=== PATIENT | female | born 1985 | race Hispanic/Latino ===

== ENCOUNTER 2018-10-28 08:24 | Emergency (ER) | payer OTHER ==
[2018-10-28 09:01] VITALS: BP 116/69
[2018-10-28] MEDS ORDERED: ZOFRAN ODT PO ONE (10:23)
--- NOTE | 2018-10-28 10:32 | Emergency Department Report ---
HPI - General Chief Complaint: Abdominal Pain Time Seen by Provider: 10/28/18 10:15 - HPI HPI: 33-year-old female presents to the emergency department with a complaint of some mid to lower abdominal pain, nausea without vomiting, and diarrhea, that has been going on for the past few weeks. The patient was seen at [facility] in August for the same symptoms and had a CT scan. She says that it showed that the mesh from her previous abdominal/ventral hernia repair "shifted." She has not seen any general surgeon or anyone regarding any type of her vision or repair. She says that the pain and nausea are keeping her from being able to eat and she is concerned that she will lose more weight. She also has a surgical history of tubal ligation and previous cholecystectomy. No primary care physician. No recent travel or sick contacts at home. She denies any fever, vaginal bleeding or discharge, dysuria. ED Past Medical Hx - Past Medical History Previous Medical History?: Yes Additional medical history: hernia - Surgical History Past Surgical History?: Yes Hx Cholecystectomy: Yes Additional Surgical History: hernia repair. tubal ligation ED Review of Systems ROS: Stated complaint: CHRONIC PAIN/HERNIA Other details as noted in HPI Comment: All other systems reviewed and negative Constitutional: denies: chills, fever Respiratory: denies: shortness of breath Cardiovascular: denies: chest pain Gastrointestinal: abdominal pain, nausea, diarrhea. denies: vomiting Genitourinary: denies: dysuria, discharge Musculoskeletal: denies: back pain, arthralgia Neurological: denies: numbness, paresthesias Physical Exam - Physical Exam Vital Signs: Vital Signs 10/28/18 09:01 Temperature 98.2 F Pulse Rate 63 Respiratory 18 Rate Blood Pressure 116/69 [Right] O2 Sat by Pulse 99 Oximetry Physical Exam: GENERAL: The patient is well-developed well-nourished. HENT: Normocephalic. Atraumatic. Patient has moist mucous membranes. EYES: Extraocular motions are intact. NECK: Supple. Trachea is midline. CHEST/LUNGS: Clear to auscultation. There is no respiratory distress noted. HEART/CARDIOVASCULAR: Regular. There is no tachycardia. There is no murmur. ABDOMEN: Abdomen is soft. Lower abdominal tenderness to palpation. No guarding. Patient has normal bowel sounds. There is no abdominal distention. SKIN: Skin is warm and dry. NEURO: The patient is awake, alert, and oriented. The patient is cooperative. Normal speech. MUSCULOSKELETAL: There is no tenderness or deformity. There is no limitation range of motion. There is no evidence of acute injury. ED Course Vital Signs 10/28/18 09:01 Temperature 98.2 F Pulse Rate 63 Respiratory 18 Rate Blood Pressure 116/69 [Right] O2 Sat by Pulse 99 Oximetry ED Medical Decision Making - Lab Data Result diagrams: 10/28/18 10:35 10/28/18 10:35 - Medical Decision Making This patient presented with a complaint of some mid to lower abdominal pain and some CT imaging findings showing that her mesh hernia repair has moved. On examination she has some mild lower abdominal tenderness to palpation of the abdomen is soft, nondistended and nontoxic in appearance. Labs were unremarkable including CBC and metabolic panel. I went back to speak to the patient and she had already eloped from the emergency department. - Differential Diagnosis constipation, UTI, bowel obstruction, hernia Critical Care Time: No Critical care attestation.: If time is entered above; I have spent that time in minutes in the direct care of this critically ill patient, excluding procedure time. ED Disposition Clinical Impression: Abdominal pain Qualifiers: Abdominal location: unspecified location Qualified Code(s): R10.9 - Unspecified abdominal pain Disposition: ELOPED Is pt being admited?: No Condition: Stable Instructions: Abdominal Pain (ED) Referrals: PRIMARY CARE, [Primary Care Provider] - 3-5 Days Time of Disposition: 15:38
[2018-10-28] MEDS ORDERED: TYLENOL PO ONE (10:42)
[2018-10-28 10:56] LABS: Basophils # (Auto) 0.1 K/mm3 (0.0-0.1); Basophils % (Auto) 1.5 % (0.0-1.8); Eosinophils # (Auto) 0.1 K/mm3 (0.0-0.4); Eosinophils % (Auto) 1.8 % (0.0-4.3); Hematocrit 38.7 % (30.3-42.9); Hemoglobin 13.1 gm/dl (10.1-14.3); Lymphocytes # (Auto) 1.1 K/mm3 (1.2-5.4); Lymphocytes % (Auto) 23.2 % (13.4-35.0); Mean Corpuscular HGB Conc 34 % (30-34); Mean Corpuscular Volume 94 fl (79-97); Monocytes # (Auto) 0.3 K/mm3 (0.0-0.8); Monocytes % (Auto) 6.2 % (0.0-7.3); Platelet Count 171 K/mm3 (140-440); Red Blood Count 4.14 M/mm3 (3.65-5.03); Red Cell Distribution Width 13.4 % (13.2-15.2)
[2018-10-28 11:18] LABS: Alanine Aminotransferase 6 units/L (7-56); Albumin 4.2 g/dL (3.9-5); BUN/Creatinine Ratio 24; Blood Urea Nitrogen 17 mg/dL (7-17); Calcium 8.8 mg/dL (8.4-10.2); Hemolysis Index 10
== END 2018-10-28 11:22 | disposition left against medical advice (07) ==
LOC: ED 08:24
DX: R10.30 Lower abdominal pain, unspecified (principal); R11.2 Nausea with vomiting, unspecified; R19.7 Diarrhea, unspecified; Z90.49 Acquired absence of other specified parts of digestive tract; Z98.890 Other specified postprocedural states; Z98.51 Tubal ligation status
CPT/HCPCS: 36415; 80053; 84703; 85025; Q0162

== ENCOUNTER 2021-10-20 20:32 | Emergency (ER) | payer OTHER ==
[2021-10-20 20:59] VITALS: BP 134/69
--- NOTE | 2021-10-20 21:53 | XRay Report ---
RIGHT FOOT 3 VIEW(S) Calcaneus 2 views INDICATION / CLINICAL INFORMATION: INJURY COMPARISON: None available. FINDINGS: BONES / JOINT(S): Acute comminuted calcaneal fracture centered at the mid calcaneus with involvement of the posterior subtalar joint. No significant arthritis. SOFT TISSUES: Soft tissue swelling about the foot. ADDITIONAL FINDINGS: None. IMPRESSION: 1. Acute comminuted calcaneal fracture with involvement of the posterior subtalar joint. Signer Name: Caleb Miller MD Signed: 10/20/2021 9:49 PM Workstation Name: [email or web address]
[2021-10-21] MEDS ORDERED: NAPROXEN 500 MG TAB PO ONE (00:02)
[2021-10-21] MEDS ORDERED: MORPHINE 4 MG/1 ML INJ IM ONE (02:23)
[2021-10-21] MEDS ORDERED: ONDANSETRON 4 MG ODT TAB PO ONE (02:23)
[2021-10-21] MEDS ORDERED: ONDANSETRON 4 MG/2 ML INJ IV ONE (02:34)
[2021-10-21] MEDS: MORPHINE 4 MG/1 ML INJ IV ONE ×2 (02:39→04:28)
--- NOTE | 2021-10-21 03:12 | Emergency Department Report ---
ED Lower Extremity HPI - General Chief Complaint: Extremity Injury, Lower Stated Complaint: POSS BROKEN RIGHT FOOT Time Seen by Provider: 10/21/21 02:22 Source: patient Mode of arrival: Ambulatory Limitations: No Limitations - History of Present Illness Initial Comments: Patient is a 36-year-old female who presents stating that she tripped over her cat and fell down several stairs. She complains of pain in her right plantar heel as well as low back. She has been unable to weight-bear. No previous injuries to that foot. Denies head injury or neck pain. MD Complaint: ankle injury Injury: Foot: Right Type of Injury: other (She is very vague about the mechanism of injury but states she tripped over a cat.) Place: home Severity: severe Severity scale (0 -10): 9 Improves With: nothing Worsens With: weight bearing Associated Symptoms: swelling, unable to bear weight Treatments Prior to Arrival: other (None) - Related Data Previous Rx's Medication Instructions Recorded Last Taken Type traMADoL [Ultram] 50 mg PO Q4HR PRN #15 tablet 10/21/21 Unknown Rx Allergies Allergy/AdvReac Type Severity Reaction Status Date / Time No Known Allergies Allergy Unverified 10/28/18 08:28 ED Review of Systems ROS: Stated complaint: POSS BROKEN RIGHT FOOT Other details as noted in HPI Comment: All other systems reviewed and negative Constitutional: denies: chills, fever Eyes: denies: vision change ENT: denies: epistaxis Respiratory: no symptoms reported. denies: shortness of breath Cardiovascular: denies: chest pain, palpitations, edema Gastrointestinal: denies: abdominal pain, nausea, vomiting, diarrhea Genitourinary: denies: hematuria Musculoskeletal: as per HPI, back pain, joint swelling, other (Right heel as above) Skin: other (Ecchymosis and swelling foot) Neurological: denies: headache, weakness, numbness, paresthesias, confusion Psychiatric: denies: anxiety, depression Hematological/Lymphatic: denies: easy bleeding, easy bruising ED Past Medical Hx - Past Medical History Previous Medical History?: No Additional medical history: hernia - Surgical History Past Surgical History?: No Hx Cholecystectomy: Yes Additional Surgical History: hernia repair. tubal ligation - Family History Family history: no significant - Social History Smoking Status: Current Every Day Smoker Substance Use Type: None - Medications Home Medications: Home Medications Medication Instructions Recorded Confirmed Last Taken Type traMADoL [Ultram] 50 mg PO Q4HR PRN #15 tablet 10/21/21 Unknown Rx ED Physical Exam - General Limitations: No Limitations General appearance: alert, in distress (In pain) - Head Head exam: Present: atraumatic, normocephalic - Eye Eye exam: Present: PERRL. Absent: scleral icterus, conjunctival injection Pupils: Present: normal accommodation - ENT ENT exam: Present: mucous membranes moist - Neck Neck exam: Present: normal inspection. Absent: tenderness, full ROM - Respiratory Respiratory exam: Present: normal lung sounds bilaterally. Absent: respiratory distress, wheezes - Cardiovascular Cardiovascular Exam: Present: regular rate, normal rhythm, normal heart sounds - GI/Abdominal GI/Abdominal exam: Present: soft. Absent: tenderness - Expanded Lower Extremity Exam Right Lower Leg exam: Present: normal inspection. Absent: tenderness, swelling Ankle exam: Present: tenderness (Plantar anterior heel), swelling, ecchymosis. Absent: deformity, crepidus Foot/Toe exam: Present: tenderness (Plantar anterior heel), swelling, ecchymosis. Absent: abrasion, deformity, crepidus Neuro vascular tendon exam: Present: no vascular compromise. Absent: pulse deficit, sensory deficit, extremity cold to touch, pallor, foot drop Gait: Positive: unable to bear weight - Back Exam Back exam: Present: tenderness (Lumbosacral paraspinous), paraspinal tenderness - Neurological Exam Neurological exam: Present: alert, oriented X3, CN II-XII intact, reflexes normal - Psychiatric Psychiatric exam: Present: agitated (Initially patient very upset while I was trying to ask her questions but redirected and was pleasant.) - Skin Skin exam: Present: warm, dry, intact, ecchymosis (And swelling mostly around the calcaneus area but there is some ecchymosis at the first MTP area), other (No open wounds or tenting of the skin.) ED Course Vital Signs 10/20/21 20:58 Temperature 98.9 F Pulse Rate 96 H Respiratory 18 Rate Blood Pressure 134/69 O2 Sat by Pulse 97 Oximetry - Reevaluation(s) Reevaluation #1: 10/21/21 04:[address] Grande on-call for orthopedics. He requests CT scan and outpatient follow-up with a short leg posterior splint. ED Lower Extremity MDM - Radiology Data Radiology results: image reviewed [address] [address] XRay Report Signed Patient: ISREAL AVALOS MR#: [id number] : 1985 Acct:[id number] Age/Sex: 36 / F ADM Date: 10/20/21 Loc: ED Attending Dr: Ordering Physician: JOSE M SMITH Date of Service: 10/21/21 Procedure(s): XR spine lumbosacral 2-3V Accession Number(s): [id number] cc: JOSE M SMITH Fluoro Time In Minutes: LUMBAR SPINE 2 VIEW 0258 INDICATION: fall down several stairs - back pain COMPARISON: None available. FINDINGS: AP and crosstable lateral views were obtained. The L2 vertebral body shows what appears to be an acute anterior compression fracture. No significant subluxation is seen. No other fractures are noted. Mild scoliosis is seen. Signer Name: Errol Diana MD Signed: 10/21/2021 3:29 AM Workstation Name: [id number] Transcribed By: GJ Dictated By: Errol Diana MD Electronically Authenticated By: Errol Diana MD Signed Date/Time: 10/21/21328 DD/ 7 TD/TT: Print [address] [address] XRay Report Signed Patient: ISREAL AVALOS MR#: [id number] : 1985 Acct:[id number] Age/Sex: 36 / F ADM Date: 10/20/21 Loc: ED Attending Dr: Ordering Physician: GAVINO STANLEY MD Date of Service: 10/20/21 Procedure(s): XR calcaneous 2+V RT Accession Number(s): [id number] cc: GAVINO STANLEY MD Fluoro Time In Minutes: RIGHT FOOT 3 VIEW(S) Calcaneus 2 views INDICATION / CLINICAL INFORMATION: INJURY COMPARISON: None available. FINDINGS: BONES / JOINT(S): Acute comminuted calcaneal fracture centered at the mid calcaneus with involvement of the posterior subtalar joint. No significant arthritis. SOFT TISSUES: Soft tissue swelling about the foot. ADDITIONAL FINDINGS: None. IMPRESSION: 1. Acute comminuted calcaneal fracture with involvement of the posterior subtalar joint. Signer Name: Eboni Bobo MD Signed: 10/20/2021 9:49 PM Workstation Name: [id number] Transcribed By: JW Dictated By: EBONI BOBO MD Electronically Authenticated By: EBONI BOBO MD Signed Date/Time: 10/20/212148 DD/ 44 TD/TT: [facility] [address] [id number] Cat Scan Report Signed Patient: ISREAL AVALOS MR#: [id number] : 1985 Acct:[id number] Age/Sex: 36 / F ADM Date: 10/20/21 Loc: ED Attending Dr: Ordering Physician: JOSE M SMITH Date of Service: 10/21/21 Procedure(s): CT lower extremity RT wo con Accession Number(s): [id number] cc: JOSE M SMITH CT RIGHT FOOT WITHOUT CONTRAST INDICATION: calcaneal fracture CONTRAST: Without IV COMPARISON: Right foot and calcaneus radiographs 10/20/[address] scans at this location are performed using CT dose reduction for ALARA by means of automated exposure control. FINDINGS: Soft tissue edema is moderately prominent in the proximal foot and ankle. The prominently comminuted crush injury of the anterior to mid calcaneus seen on radiographs is noted. Boehler's angle is prominently depressed. Multiple fragments are seen with mild medial angulation and displacement of the large medial fragment. Posterior third of the calcaneus appears intact though oblique fracture line extends medially to the inferior aspect of the posterior calcaneus. Cuboid appears mildly subluxed medially with respect to the calcaneus. No other fractures are identified. IMPRESSION: Prominently comminuted calcaneal crush injury Signer Name: Errol Diana MD Signed: 10/21/2021 5:04 AM Workstation Name: [id number] Transcribed By: GJ Dictated By: Errol Diana MD Electronically Authenticated By: Errol Diana MD Signed Date/Time: 10/21/21 0504 DD/ 8 TD/TT: - Medical Decision Making 36-year-old female with comminuted calcaneal fracture into the subtalar joint as well as a anterior compression fraction of L2 after a fall down stairs. I have already consulted with Dr. Grande orthopedist who plans to see her on an outpatient basis. Critical care attestation.: If time is entered above; I have spent that time in minutes in the direct care of this critically ill patient, excluding procedure time. ED Disposition Clinical Impression: Right calcaneal fracture, Compression fracture of L2, Fall down stairs Disposition: HOME / SELF CARE / HOMELESS Is pt being admited?: No Condition: Stable Instructions: Cast or Splint Care, Adult, [id number], Lumbar Spine Fracture, Calcaneal Fracture Repair Surgery Additional Instructions: Rest ice compression/splint elevate. Nonweightbearing with crutches until cleared by orthopedist. Prescriptions: traMADoL [Ultram] 50 mg PO Q4HR PRN #15 tablet PRN Reason: Pain Referrals: DENICE GRANDE MD [Staff Physician] - 3-5 Days Forms: Work/School Release Form Time of Disposition: 06:36
--- NOTE | 2021-10-21 03:34 | XRay Report ---
LUMBAR SPINE 2 VIEW 0258 INDICATION: fall down several stairs - back pain COMPARISON: None available. FINDINGS: AP and crosstable lateral views were obtained. The L2 vertebral body shows what appears to be an acute anterior compression fracture. No significant subluxation is seen. No other fractures are noted. Mild scoliosis is seen. Signer Name: Errol Diana MD Signed: 10/21/2021 3:29 AM Workstation Name: [id number]
[2021-10-21] MEDS ORDERED: MORPHINE 4 MG/1 ML INJ IV ONE (04:25)
--- NOTE | 2021-10-21 05:09 | Cat Scan Report ---
CT RIGHT FOOT WITHOUT CONTRAST INDICATION: calcaneal fracture CONTRAST: Without IV COMPARISON: Right foot and calcaneus radiographs 10/20/[address] scans at this location are performed using CT dose reduction for ALARA by means of automated e xposure control. FINDINGS: Soft tissue edema is moderately prominent in the proximal foot and ankle. The prominently c omminuted crush injury of the anterior to mid calcaneus seen on radiographs is noted. Boehler's angle is prominently depressed. Multiple fragments are seen with mild medial angulation and displacement o f the large medial fragment. Posterior third of the calcaneus appears intact though oblique fracture line extends medially to the inferior aspect of the posterior calcaneus. Cuboid appears mildly sublux ed medially with respect to the calcaneus. No other fractures are identified. IMPRESSION: Prominently comminuted calcaneal crush injury Signer Name: Errol Diana MD Signed: 10/21/2021 5:04 AM Workstation Name: [id number]
== END 2021-10-21 06:40 | disposition home or self-care (01) ==
LOC: ED 20:32
DX: S32.029A Unspecified fracture of second lumbar vertebra, initial encounter for closed fracture (principal); S92.001A Unspecified fracture of right calcaneus, initial encounter for closed fracture; W10.8XXA Fall (on) (from) other stairs and steps, initial encounter; Y93.89 Activity, other specified; Y92.89 Other specified places as the place of occurrence of the external cause; Y99.8 Other external cause status
CPT/HCPCS: 29515; 72100; 73630; 73650; 73700; 96372; 96374; 96375; 99284; J2270; J2405